=== PATIENT | female | born 1940 | race Caucasian/White ===

== ENCOUNTER 2020-04-25 18:06 | Inpatient (IN) ==
[2020-04-26] MEDS ORDERED: Ipratropium/Albuterol Neb 3 ML IH PRN (14:56)
[2020-04-26] MEDS ORDERED: Nitroglycerin 0.4 MG TAB.SUBL SL PRN (14:56)
[2020-04-26] MEDS ORDERED: Ondansetron ODT 4 MG TAB.RAPDIS PO PRN (14:56)
[2020-04-27 07:41] LABS: Basophils # 0.1 K/mcL (0.0-0.2); Basophils % 0.5 %; Eosinophils # 0.4 K/mcL (0.0-0.6); Hematocrit 37.9 % (35.3-44.9); Immature Granulocytes % 0.6 % (0-4); Lymphocytes # 2.3 K/mcL (0.6-4.6); Lymphocytes % 11.4 %; Mean Corpuscular HGB Conc 31.7 g/dL (31.6-35.5); Mean Corpuscular Volume 97.9 fL (83.0-100.0); Mean Platelet Volume 9.5 fL (9.4-12.4); Monocytes # 1.8 K/mcL (0.0-1.3); Monocytes % 9.1 %; Neutrophils # 15.3 K/mcL (1.6-8.9); Platelet Count 266 K/mcL (140-400); Red Blood Count 3.87 M/mcL (3.82-4.97); Red Cell Distribution Width 13.4 % (11.5-14.5); Segmented Neutrophils % 76.4 %
[2020-04-27] MEDS: Aspirin 81 MG TAB.CHEW PO SCH (07:48)
[2020-04-27] MEDS: amLODIPine 5 MG TABLET PO SCH (07:48)
[2020-04-27] MEDS: Cholecalciferol (D-3) 1,000 UNIT (25MCG) TABLET PO SCH (07:49)
[2020-04-27] MEDS: Metoprolol XL (24 HR) Succ 50 MG TAB.ER.24H PO SCH (07:49)
[2020-04-27] MEDS: lisinopriL 20 MG TABLET PO SCH (07:49)
[2020-04-27 09:43] LABS: BUN/Creatinine Ratio 25 (6-26); Blood Urea Nitrogen 19 mg/dL (8-23); Calcium 9.9 mg/dL (8.6-10.3); Carbon Dioxide 24 mEq/L (23-29); Chloride 101 mEq/L (98-107); Glucose 118 mg/dL (70-105); Osmolality,Calculated 283 (280-300); Potassium 4.6 mEq/L (3.5-5.1); Sodium 135 mEq/L (136-145); eGFR For African Americans > 60 (> 60); eGFR For Non-African Americans > 60 (> 60)
[2020-04-27] MEDS: Acetaminophen 325 MG TABLET PO PRN (21:29)
[2020-04-28] MEDS: Metoprolol XL (24 HR) Succ 50 MG TAB.ER.24H PO SCH (08:27)
[2020-04-28] MEDS: Aspirin 81 MG TAB.CHEW PO SCH (08:27)
[2020-04-28] MEDS: amLODIPine 5 MG TABLET PO SCH (08:27)
[2020-04-28] MEDS: Cholecalciferol (D-3) 1,000 UNIT (25MCG) TABLET PO SCH (08:28)
[2020-04-28] MEDS: lisinopriL 20 MG TABLET PO SCH (08:28)
[2020-04-28] MEDS: Acetaminophen 325 MG TABLET PO PRN (08:40)
[2020-04-28 18:50] VITALS: BP 141/74
== END 2020-04-28 20:50 | disposition short-term general hospital (02) | DRG 56 ==
LOC: INPPIK 04-26 11:40
PROVIDERS: ADMIT Family Medicine; ATTEND Family Medicine